=== PATIENT | male | born 1995 | race Caucasian/White ===

== ENCOUNTER 2016-11-26 22:18 | Emergency (ER) | payer BC ==
[~2016-11-26] VITALS: Ht 188 cm; Wt 93.2 kg
[2016-11-26 22:21] VITALS: TEMP 36.8; Ht 188 cm; Wt 93.2 kg
[2016-11-26] MEDS ORDERED: SODIUM CHLORIDE 0.9% 1000ML 1,000 ML IV STA ×2 (22:49)
[2016-11-26] MEDS ORDERED: ONDANSETRON INJ 2 MG/ML 2 ML VIAL IV STA (22:49)
[2016-11-26] MEDS ORDERED: ONDA4TAB10 SL (23:27)
[2016-11-26 23:28] LABS: ISTAT CREATININE 0.9 mg/dl (0.6-1.3); ISTAT IONIZED CALCIUM 1.15 mmol/l (1.12-1.32)
[2016-11-26] MEDS ORDERED: ONDANSETRON HOME PACK 4MG OD TAB PO ONE (23:30)
--- NOTE | 2016-11-26 23:31 | EMERGENCY ROOM VISIT NOTE ---
History Report prepared by Kathy: Kyleigh Mcdonald Under the Supervision of: Dr. Alicia Tineo M.D. First contact with patient: 22:48 Chief Complaint: NAUSEA Stated Complaint: NAUSEA, STOMACH PAIN (MILD) History of Present Illness The patient is a 21 year old male who presents to the Emergency Room with complaints of constant nausea since this morning. He was drinking alcohol last night. He reports, "I think I have alcohol poisoning." The patient has had intermittent vomiting throughout the day today. He has slight diffuse abdominal pain. He rates his pain as a 4/10 in severity. Source of History: patient Onset: this morning Position: other Symptom Intensity: 4/10 Quality: other (nausea) Timing: constant Modifying Factors (Worsening): drinking (alcohol) Associated Symptoms: + abdominal pain, + vomiting Review of Systems See HPI for pertinent positives & negatives. A total of 10 systems reviewed and were otherwise negative. Past Medical & Surgical Medical Problems: (1) No significant active problems Family History Patient reports no known family medical history. Social History Smoking Status: Never Smoker Alcohol Use: occasionally Housing Status: lives with roommate Occupation Status: [employer] Current/Historical Medications Scheduled Ondasetron Odt (Zofran Odt), 4 MG SL Q6H Physical Exam Vital Signs Date Time Temp Pulse Resp B/P Pulse Ox O2 Delivery O2 Flow Rate FiO2 11/26/16 23:39 75 18 135/76 97 Room Air 11/26/16 22:21 36.8 93 18 130/78 97 Room Air Physical Exam CONSTITUTIONAL: Mild distress. HEENT: No icterus, moist mucous membranes NECK: No meningismus, trachea is midline. CARDIOVASCULAR: Regular rate, normal perfusion RESPIRATORY: Unlabored breathing. Clear to auscultation. GASTROINTESTINAL: Non-tender GENITOURINARY: No flank tenderness MUSCULOSKELETAL: Full range of motion NEUROLOGIC: No acute gross focal deficits. PSYCHIATRIC: Normal affect SKIN: Normal for ethnicity. Medical Decision & Procedures Laboratory Results Test 11/26/16 23:16 Bedside Hemoglobin 16.0 g/dl (14.0-18.0) Bedside Hematocrit 47 % (42-52) Bedside Sodium 144 mEq/L (135-144) Bedside Potassium 3.6 mEq/L (3.3-5.0) Bedside Chloride 102 mEq/L (101-112) Bedside Total CO2 26 mEq/l (24-31) Anion Gap 20.0 mmol/L (16-25) Bedside Blood Urea Nitrogen 9 mg/dl (7-18) Bedside Creatinine 0.9 mg/dl (0.6-1.3) Bedside Glucose (other) 92 mg/dl (70-99) Bedside Ionized Calcium (Monika) 1.15 mmol/l (1.12-1.32) Medications Administered Medications (Trade) Dose Ordered Sig/Margo Route Start Time Stop Time Status Last Admin Dose Admin Sodium Chloride (Nss 1000ml) 1,000 ml @ 0 mls/hr Q0M STAT IV 11/26/16 22:49 11/26/16 22:52 DC 11/26/16 23:10 999 MLS/HR Ondansetron HCl 4 mg 4 mg NOW STAT IV 11/26/16 22:49 11/26/16 22:52 DC 11/26/16 23:14 4 MG Sodium Chloride (Nss 1000ml) 1,000 ml @ 0 mls/hr Q0M STAT IV 11/26/16 22:49 11/26/16 22:52 DC 11/26/16 22:49 0 MLS/HR Ondansetron HCl (ZOFRAN ODT 4MG Home Pack) 1 homepack UD ONCE PO 11/26/16 23:30 11/26/16 23:31 DC 11/26/16 00:00 1 HOMEPACK ED Course 2250: Past medical records reviewed. The patient was evaluated in room C6. A complete history and physical examination was performed. 2249: nss 1000 ml IV wide open, Zofran 4 mg IV, NSS 1000 ml IV wide open 2330: Zofran 4 mg PO 1 homepack 2332: I reassessed the patient at this time. He is feeling better and resting comfortably. I discussed the results and treatment plan with the patient. I answered all pertaining questions that he had. He expressed understanding and verbalized agreement. The patient will be discharged home after his fluids are finished. Medical Decision Differential diagnoses includes dehydration. 21 y/o presents to ED for evaluation of weakness and dehydration after Etoh last night. Given NSS bolus and Zofran IV, tolerated PO. [place] better prior to discharge. No further concerns. Impression Primary Impression: Dehydration Scribe Attestation The scribe's documentation has been prepared under my direction and personally reviewed by me in its entirety. I confirm that the note above accurately reflects all work, treatment, procedures, and medical decision making performed by me. Departure Information Dispostion Home / Self-Care Prescriptions Ondasetron Odt (ZOFRAN ODT) 4 Mg Tab 4 MG SL Q6H for Nausea, #20 TAB Prov: Alicia Tineo MD 11/26/16 Referrals No Doctor, Assigned (PCP) Patient Instructions [facility]
[2016-11-26 23:39] VITALS: BP 135/76; PULSE 75; O2SAT 97
== END 2016-11-27 00:04 | disposition home or self-care (01) ==
LOC: C.EDB 22:20 → C.EDC 11-27 00:04
DX: E86.0 Dehydration (principal)